=== PATIENT | female | born 1945 | race Caucasian/White ===

== ENCOUNTER 2019-02-10 21:26 | Emergency (ER) | payer OTHER | END 2019-02-11 00:16 | disposition home or self-care (01) | LOC: ED 21:26 ==

== ENCOUNTER 2019-04-28 12:51 | Inpatient (IN) | payer OTHER ==
[~2019-04-28] VITALS: Ht 157.5 cm; Wt 139.3 kg
[2019-04-28 13:07] VITALS: Ht 157.5 cm; Wt 139.3 kg
[2019-04-28 13:48] LABS: CALCIUM 9.4 mg/dL (8.5-10.1); CARBON DIOXIDE 28.2 mmol/L (21-32); CHLORIDE SERUM 102 mmol/L (98-107); CREATININE SERUM 1.4 mg/dL (0.6-1.0); GLUCOSE SERUM 156 mg/dL (74-106); POTASSIUM SERUM 3.6 mmol/L (3.5-5.1); SODIUM SERUM 140 mmol/L (136-145)
[2019-04-28 13:51] LABS: BASOPHIL % 0.1 % (0-2); PLATELET COUNT 384 x10^3mcL (130-400)
[2019-04-28 13:52] LABS: ALKALINE PHOSPHATASE 143 U/L (46-116); ALT/SGPT 36 U/L (14-59); AST/SGOT 35 U/L (15-37); TOTAL PROTEIN, SERUM 7.1 g/dL (6.4-8.2)
[2019-04-28 13:56] LABS: ALBUMIN 1.7 g/dL (3.4-5.0)
--- NOTE | 2019-04-28 14:00 | NUR ---
PT REC'D IN OB, MD AT BEDSIDE/EKG COMPLETE; WAITING TO TRANSFER PT TO BED 9 FOR CLOSER OBSERVATION; PT NOTED TO BE VERY WEAK AND INCREASE OF WORK OF BREATHING WITH AMBULATION; WAITING ON FURTHER ORDERS
[2019-04-28 14:03] LABS: RED CELL DISTRIBUTION WIDTH 17.6 % (11.5-14.5)
--- NOTE | 2019-04-28 14:25 | NUR ---
IV BOLUS INITIATED PER ORDER, PT VERBALIZED UNDERSTANDING PRIOR TO ADMINISTRATION. BREATHING TREATMENT IN PROGRESS. DAUGHTER AT BEDSIDE.
--- NOTE | 2019-04-28 15:35 | NUR ---
PT WILL BE ADMITTED FOR FURTHER EVALUATION OF SOB, POSSIBLE PNEUMONIA; DAUGHTER AND PT UPDATED, VERBALIZED UNDERSTANDING, DAV FLUIDS WELL, WAITING ON FURTHER ORDERS
--- NOTE | 2019-04-28 16:50 | NUR ---
PT AMBULATED TO BR, DAV WELL, RTN'D TO BED W/O DIFFICULTY; WAITING ON BED ASSIGNMENT
--- NOTE | 2019-04-28 16:53 | NUR ---
PT MEDICATED WITH SOLUMEDROL AND INTIATED ON ROCEPHIN; PER MD VERBAL ORDER, INITIATE ROCEPHIN VERY SLOWLY AND MONITOR; PT/FAMILY MEMBER MADE AWARE TO ALERT RN OF ANY POSSIBLE REACTION; CONT TO MONITOR
[2019-04-28 17:39] VITALS: BP 148/78
--- NOTE | 2019-04-28 18:00 | NUR ---
PT COMPLETED ROCEPHIN W/O ANY REACTION OR RASH, DAV WELL INITIATED ON IV AZITHROMAX PER ORDER, DAV WELL
[2019-04-28] MEDS ORDERED: FUROSEMIDE PO (18:57)
[2019-04-28] MEDS ORDERED: NAPROSYN500 MG PO (18:57)
[2019-04-28] MEDS ORDERED: SINGULAIR10 MG PO (18:58)
[2019-04-28] MEDS ORDERED: PROTONIX40 MG PO (18:58)
[2019-04-28] MEDS ORDERED: LOSARTAN POTAS100 M1 PO (18:58)
[2019-04-28] MEDS ORDERED: CARVEDILOL12.5 M1 PO (18:58)
[2019-04-28] MEDS ORDERED: ALBUTEROL SULFATE PO (18:59)
[2019-04-28] MEDS ORDERED: XANAX0.5 MG PO (19:00)
--- NOTE | 2019-04-28 19:00 | NUR ---
PT RESTING WELL, DAV INFUSION OF SECOND ABX: JESIKATHROMAX, BED ASSIGNMENT REC'D
[2019-04-28 19:54] VITALS: BP 167/77
--- NOTE | 2019-04-28 20:05 | NUR ---
RECEIVED PT FROM ER, PT ADMIT FOR COPD EXACERBATION, PT IS A/O X4, VERBAL RESPONSIVE, ABLE TO TELL WHAT SHE NEEDS. RIGHT EYE BLIND. LUNG SOUND CONGESTED RIAN. DENY ANY SOB, PT IS ON 2L/MIN O2 VIA NC. PO2 96%, PT IS ON TELE 6, NSR, DENY ANY CHEST PAIN OR DISCOMFORT, BOWEL SOUND PRESENT ALL 4 QUADRANTS, NO DISTENTION, NO TENDER. PEDAL PULSE PRESENT BOTH FEET, +1 EDEMA BLE. IV LEFT AC, NO LEAKING, NO INFILTRAITON. ALL ADLS ASSIST, ALL NEED MET, CALL LIGHT IN REACH. WILL CONTINUE TO MONITOR.
--- NOTE | 2019-04-28 20:10 | NUR ---
PT RECEIVED FROM DONALD MANCIA. PT IS ALERT AND ORIENTED X4, CALM AND COOPERATIVE WITH CARE. NO ACUTE DISTRESS NOTED. WILL CONTINUE TO MONITOR AT THIS TIME.
--- NOTE | 2019-04-29 01:03 | NUR ---
PT IS RESTING IN BED WITH EYES CLOSED AT THIS TIME. NO ACUTE DISTRESS NOTED. NO S/S OF PAIN NOTED. SAFETY AND COMFORT MEASURES MAINTAINED, BED IN LOWEST POSITION, CALL LIGHT WITHIN REACH.
--- NOTE | 2019-04-29 02:00 | NUR ---
PT IS RESTING IN BED WITH EYES CLOSED AT THIS TIME. NO ACUTE DISTRESS NOTED. PT HAS BEEN CALM AND COOPERATIVE WITH CARE. NO S/S OF PAIN NOTED. SAFETY AND COMFORT MEASURES MAINTAINED, BED IN LOWEST POSITION, CALL LIGHT WITHIN REACH.
--- NOTE | 2019-04-29 04:11 | NUR ---
PT IS RESTING IN BED WITH EYES CLOSED AT THIS TIME. NO ACUTE DISTRESS NOTED. PT HAS BEEN CALM AND COOPERATIVE WITH CARE. SAFETY AND COMFORT MEASURES MAINTAINED, BED IN LOWEST POSITION, CALL LIGHT WITHIN REACH.
--- NOTE | 2019-04-29 05:10 | NUR ---
PT HAS RESTED IN LONG INTERVALS THROUGHOUT THE SHIFT, NO ACUTE DISTRESS NOTED. PT HAS BEEN CALM AND COOPERATIVE WITH CARE AT THIS TIME. PT HAS NO COMPLAINT OF PAIN AT THIS TIME. SAFETY AND COMFORT MEASURES MAINTAINTED, BED IN LOWEST POSITION, CALL LIGHT WITHIN REACH. WILL ENDORSE CONTINUITY OF CARE TO THE ONCOMING RN.
[2019-04-29 05:48] VITALS: BP 155/84
[2019-04-29 06:34] LABS: PLATELET COUNT 392 x10^3mcL (130-400)
[2019-04-29 06:38] LABS: BASOPHIL % 0 % (0-2); RED CELL DISTRIBUTION WIDTH 17.7 % (11.5-14.5)
[2019-04-29 06:50] LABS: ALKALINE PHOSPHATASE 114 U/L (46-116); ALT/SGPT 36 U/L (14-59); AST/SGOT 31 U/L (15-37); BILIRUBIN TOTAL 0.4 mg/dL (0.20-1.00); CALCIUM 9.2 mg/dL (8.5-10.1); CARBON DIOXIDE 26.2 mmol/L (21-32); CHLORIDE SERUM 105 mmol/L (98-107); CREATININE SERUM 1.2 mg/dL (0.6-1.0); GLUCOSE SERUM 200 mg/dL (74-106); MAGNESIUM 1.8 mg/dL (1.8-2.4); POTASSIUM SERUM 3.9 mmol/L (3.5-5.1); SODIUM SERUM 142 mmol/L (136-145); TOTAL PROTEIN, SERUM 6.6 g/dL (6.4-8.2)
[2019-04-29 07:10] LABS: ALBUMIN 1.6 g/dL (3.4-5.0)
--- NOTE | 2019-04-29 07:20 | NUR ---
RECEIVED HAND OFF REPORT FROM [facility] NURSE. FOUND PATIENT SITTING UP ON SIDE OF BED WITH NO DISTRESS NOTED. PATIENT HAD NO COMPLAINTS AT THIS TIME. TELE 6 IN [place]. REINFORCED TO PATIENT TO USE SLIP RESISTANT FOOTWEAR WHEN ATTEMPTING TO AMBULATE. CALL LIGHT WITHIN REACH. WILL CONTINUE TO MONITOR
--- NOTE | 2019-04-29 08:45 | NUR ---
PATIETN AMBULATING TO RESTROOM WITHOUT ASSISTANCE. PULSE INCREASES DURING ACTIVITY BUT NO DISTRESS NOTED. STUDENT WITH [facility] ADMINISTERING MEDICAITIONS WITH PROFESSOR.
[2019-04-29 09:15] VITALS: BP 156/73
--- NOTE | 2019-04-29 10:36 | NUR ---
DR ZHOU SAW PATIENT THIS MORNING, INFORMED PATIENT THAT SHE SHOULD BE ABLE TO BE DISCHARGED TOMORROW. STUDENT NURSE AND INSTRUCTOR WITH PATIENT AT THIS TIME ADMINSITERING MEDICATION. CALL LIGHT WITHIN REACH
--- NOTE | 2019-04-29 12:22 | NUR ---
BG RESULT WAS 213. 6 UNITS REGULAR INSULIN ADMINISTERED PER SLIDING SCALE. VERIFIED BY SURAJ BENNETT. PATIENT HAD NO COMPLAINTS AT THIS TIME.CALL LIGHT WITHIN REACH
[2019-04-29 13:30] VITALS: BP 150/80
--- NOTE | 2019-04-29 14:16 | NUR ---
PATIENT STATED SHE COULD NOT EAT LUNCH TRAY DUE TO HER INABILIT TO CHEW FOOD WITHOUT TEETH. GAVE PATIENT PUDDING, APPE SAUCE AND JELLO. OBTAINED ORDER TO CHANGE DIET TO PUREE PER PATIENT REQUEST. CALL LIGHT IS WITHIN PATIENT'S REACH. WILL CONTINUE TO MONITOR
--- NOTE | 2019-04-29 16:22 | NUR ---
PATIENT SITTING UP IN BED, NO DISTRESS AT THIS TIME. FAMILY MEMBERS AT BEDSIDE. CALL LIGHT WITHIN REACH, WILL CONTINUE TO MONITOR
--- NOTE | 2019-04-29 17:20 | NUR ---
BG RESULT WAS 226, ADMINSITERED 6U INSULIN SQ PER SLIDING SCALE
--- NOTE | 2019-04-29 18:41 | NUR ---
ADMINISTERED MEDICATIONS PER DEC. PATIENT FAMILY AT BEDSIDE. PATIENT BLOOD PRESSURE TAKEN AND RESULT WAS 183/88 MAP 115. CALLING [facility] TO INFORM DR [place]. AWAITING RETURN CALL
--- NOTE | 2019-04-29 18:48 | NUR ---
SPOKE WITH DR VIEYRA RECEIVED ORDER FOR CLONADINE 0.1 MG Q6H PRN HYPERTENSION. HOLD IN SYSTOLIC BEOW 120 OR HR BELOW 65
--- NOTE | 2019-04-29 20:00 | NUR ---
PATIENT RECEIVED IN BED CONVERSING WITH FAMILY MEMBER, PATIENT IN NO RESP. DISTRESS, FOUND ON ROOM AIR SAT IS TOLERATING IT WELL. DENIES CHEST PAINS.BS CLEAR UPPER LOBES AND DIMINISHED BASES, CLAIMED WITH MILD SOB ON EXERTION, OCC NON PRODUCTIVE COUGH.SAFETY PRECAUTIONS MAINTAINED. WILL CONTINUE TO MONITOR.
[2019-04-29 20:30] VITALS: BP 154/78
--- NOTE | 2019-04-29 21:47 | NUR ---
SCHEDULED MEDS ADMINISTERED THIS TIME, PATIENT WAS IN SITTING POSITION. INFORMED PATIENT ABOUT EACH MEDS ACTIONS AND PURPOSE PRIOR. TOOK PILLS WELL.
--- NOTE | 2019-04-29 22:00 | NUR ---
PATIENT HEPLOCK TO LEFT HAND LEAKING WHEN FLUSHED, CATH OUT. INSERTED NEW SITE TO RTFA WITHOUT DIFF.
--- NOTE | 2019-04-30 | NUR ---
ROUNDS MADE PATIENT RESTING COMFORTABLY THIS TIME, EASILY AWAKEN WHEN NAME CALLED, DENIED ANY RESP DISTRESS, OFF O2 AT THIS TIME AND IS TOLERATING IT WELL. SAFETY MAINTAINED WILL CONTINUE TO MONITOR.
[2019-04-30 05:21] VITALS: BP 158/62
--- NOTE | 2019-04-30 05:45 | NUR ---
COMPLAINED OF HEADACHE RATED AT 5/10 MEDICATED PRN. WILL CHECK EFFECTIVENESS.
--- NOTE | 2019-04-30 06:15 | NUR ---
PATIENT SLEPT OFF AND ON DURING THE SHIFT. NO RESP. DISTRESS BEEN ON ROOM AIR THROUGHOUT. COMPLAINED OF HEADACHE AND WAS MEDICATED WITH RELIEF. AMBULATORY WITH STEADY GAIT. SAFETY/FALL PREC MAINTAINED. WILL ENDORSE CONTINUITY OF CARE TO INCOMING NURSE.
[2019-04-30 07:09] LABS: ALKALINE PHOSPHATASE 113 U/L (46-116); ALT/SGPT 43 U/L (14-59); AST/SGOT 43 U/L (15-37); BILIRUBIN TOTAL 0.4 mg/dL (0.20-1.00); CALCIUM 9.7 mg/dL (8.5-10.1); CARBON DIOXIDE 28.3 mmol/L (21-32); CHLORIDE SERUM 103 mmol/L (98-107); CREATININE SERUM 1.3 mg/dL (0.6-1.0); GLUCOSE SERUM 220 mg/dL (74-106); MAGNESIUM 1.8 mg/dL (1.8-2.4); POTASSIUM SERUM 3.8 mmol/L (3.5-5.1); SODIUM SERUM 140 mmol/L (136-145); TOTAL PROTEIN, SERUM 6.6 g/dL (6.4-8.2)
[2019-04-30 07:17] LABS: ALBUMIN 1.7 g/dL (3.4-5.0)
[2019-04-30 07:30] LABS: BASOPHIL % 0 % (0-2); PLATELET COUNT 410 x10^3mcL (130-400); RED CELL DISTRIBUTION WIDTH 17.6 % (11.5-14.5)
--- NOTE | 2019-04-30 07:32 | NUR ---
BEDSIDE HANDS OFF PERFORMED WITH INCOMING NURSE EMILY.
--- NOTE | 2019-04-30 07:40 | NUR ---
RECEIVED PT FROM RECLAIMER. PT AWAKE, ALERT A/OX4. PT ON 2LNC WITH NO RESP DISTRESS NOTED. IV ACCESS C/D/I SALINE LOCKED. PT ON TELE 6, DENIES CHEST PAIN. PERIPHERAL PULSES PALPABLE, NO EDEMA NOTED. ACTIVE BS NOTED, PT REPORTS BM TODAY WITH NO ISSUES. PT HAS BRP. PT NOTED TO HAVE GENERALIZED WEAKNESS. DENIES PAIN AT THIS TIME. SAFETY MEASURES IN PLACE, BED LOW AND LOCKED. CALL LIGHT WITHIN REACH. ECHOCARDIOGRAM AT BEDSIDE.
[2019-04-30 09:58] VITALS: BP 154/85
[2019-04-30 10:41] VITALS: BP 154/85
--- NOTE | 2019-04-30 11:00 | NUR ---
PT DISCHARGE INSTRUCTIONS/ EDUCATION PROVIDED. PT VERBALIZES UNDERSTANDING. PT TO FOLLOW UP WITH DR MONTANA WITH APPT GIVEN. PT IV ACCESS REMOVED WITH CATHETER INTACT. PT WAITING FOR DAUGHTER FOR A RIDE HOME.
[2019-04-30 12:40] VITALS: BP 138/79
--- NOTE | 2019-04-30 12:44 | NUR ---
DUE MEDS ADMINISTERED. PT REFUSES HEPARIN AT THIS TIME. NO ACUTE DISTRESS OR DISCOMFORT NOTED AT THIS TIME. SAFETY MAINTAINED.
== END 2019-04-30 14:25 | disposition home or self-care (01) | DRG 190 ==
LOC: ED 12:51 → DU 16:23
PROVIDERS: ADMIT Internal Medicine Pulmonary Disease
DX: J44.1 Chronic obstructive pulmonary disease with (acute) exacerbation (principal); J18.9 Pneumonia, unspecified organism; I13.0 Hypertensive heart and chronic kidney disease with heart failure and stage 1 through stage 4 chronic kidney disease, or unspecified chronic kidney disease; Z68.43 Body mass index [BMI] 50.0-59.9, adult; J44.0 Chronic obstructive pulmonary disease with (acute) lower respiratory infection; N18.2 Chronic kidney disease, stage 2 (mild); I50.9 Heart failure, unspecified; E66.01 Morbid (severe) obesity due to excess calories; Z87.891 Personal history of nicotine dependence
CPT/HCPCS: 82962; 83880; G0378; J0456; J0696; J1644; J2920; J2930; J3490; J7030; J7050; J7613; J7620; J7644; Q0092